=== PATIENT | female | born 1965 | race Caucasian/White ===

== ENCOUNTER 2022-12-24 12:08 | Inpatient (IN) | payer BC ==
[~2022-12-24] VITALS: Ht 157.5 cm; Wt 79.8 kg
[2022-12-24 12:13] VITALS: BP_SYST 147
[2022-12-24] MEDS ORDERED: LIDOCAINE PATCH 5% 1 EA TP ONE (12:45)
[2022-12-24] MEDS ORDERED: methocarbamoL 500 MG TABLET PO ONE (12:45)
[2022-12-24] MEDS ORDERED: KETOROLAC TROMETHAMINE 15 MG VIAL IM ONE (12:45)
[2022-12-24] MEDS ORDERED: MORPHINE 4 MG INJ. 4 MG/ML VIAL IM ONE (13:45)
[2022-12-24] MEDS ORDERED: MORPHINE 4 MG INJ. 4 MG/ML VIAL IVP ONE (14:15)
[2022-12-24] MEDS ORDERED: ONDANSETRON HCL 4 MG/2 ML VIAL IVP ONE (14:15)
[2022-12-24 15:59] LABS: BASOPHILS % (AUTO) 0.2 % (0.0-2.0); EOSINOPHILS % (AUTO) 0.8 % (0.0-4.0); HEMATOCRIT 34.4 % (36-48); HEMOGLOBIN 11.9 g/dL (12.0-16.0); LYMPHOCYTES # (AUTO) 0.5 K/uL (1.0-5.5); MEAN CORPUSCULAR HEMOGLOBIN 35 pg (27-31); MEAN CORPUSCULAR HGB CONC 35 % (32-36); MEAN CORPUSCULAR VOLUME 101 fL (79.0-98.0); MONOCYTES # (AUTO) 0.4 K/uL (0.0-1.0); MONOCYTES % (AUTO) 7.6 % (1.7-9.3); NEUTROPHILS # (AUTO) 4.8 K/uL (1.8-7.7); NEUTROPHILS % (AUTO) 83.4 % (40.0-70.0); PLATELET COUNT (AUTO) 207 K/uL (130-430); RED BLOOD CELL COUNT(AUTO) 3.42 MIL/uL (4.2-6.2); RED CELL DISTRIBUTION WIDTH 13.7 % (9.0-15.0); WHITE BLOOD COUNT (AUTO) 5.7 K/uL (4.8-10.8)
[2022-12-24 16:09] LABS: ALBUMIN 2.8 g/dL (3.4-4.8); CALCIUM 8.7 mg/dL (8.4-11.0); CREATININE 0.73 mg/dL (0.55-1.30); TOTAL BILIRUBIN 1.2 mg/dL (0.0-1.0)
[2022-12-24] MEDS ORDERED: POTASSIUM CHLORIDE 20 MEQ/PKT PACKET PO ONE (17:15)
[2022-12-24] MEDS ORDERED: LACO100T2 PO (20:47)
[2022-12-24] MEDS ORDERED: PRO20 PO (20:49)
[2022-12-24 21:16] VITALS: BP_SYST 130
[2022-12-24] MEDS ORDERED: FLU VACC QS2022-23(6MOS UP)/PF 0.5 ML/SYR SYRINGE I.M. PRN (21:30)
[2022-12-24] MEDS ORDERED: ACETAMINOPHEN 650 MG/20.3 ML UDC PO PRN (22:15)
[2022-12-24] MEDS ORDERED: HYDROcodone/ACETAMIN 5-325 MG TAB (NORCO/ VICODIN) PO PRN (22:15)
[2022-12-24] MEDS ORDERED: NALOXONE HCL 0.4 MG/ML AMP (NARCAN) IVP PRN ×2 (22:15)
[2022-12-24] MEDS: HYDROcodone/ACETAMIN 10-325 MG TAB PO PRN (22:38)
[2022-12-25 00:05] VITALS: BP_SYST 135
[2022-12-25] MEDS: HYDROcodone/ACETAMIN 10-325 MG TAB PO PRN ×2 (02:44→09:16)
[2022-12-25 08:00] VITALS: BP_SYST 137
[2022-12-25] MEDS ORDERED: LORazepam 2 MG/ML VIAL IVP PRN (11:45)
[2022-12-25] MEDS ORDERED: NALOXONE HCL 0.4 MG/ML AMP (NARCAN) IVP PRN ×2 (11:45)
[2022-12-25] MEDS ORDERED: KETOROLAC TROMETHAMINE 30 MG VIAL IVP PRN (11:45)
[2022-12-25] MEDS ORDERED: ONDANSETRON HCL 4 MG/2 ML VIAL IVP PRN (11:45)
[2022-12-25] MEDS ORDERED: ACETAMINOPHEN/CODEINE 300 MG-30 MG TABLET PO PRN (11:45)
[2022-12-25 11:47] VITALS: BP_SYST 122
[2022-12-25] MEDS: OXYCODONE/ACETAMINOPHEN 5-325 TABLET PO PRN ×2 (13:35→20:33)
[2022-12-25] MEDS: NORMAL SALINE 5 ML DISP.SYRIN IVF SCH ×2 (13:39→21:52)
[2022-12-25] MEDS: HYDROcodone/ACETAMIN 5-325 MG TAB (NORCO/ VICODIN) PO PRN (17:44)
[2022-12-25 18:24] VITALS: BP_SYST 108
[2022-12-25 20:00] VITALS: BP_SYST 119
[2022-12-25] MEDS: DOCUSATE SODIUM 100 MG CAPSULE PO SCH (20:32)
[2022-12-25] MEDS: MULTIVITAMINS TAB 1 TABLET PO SCH (20:33)
[2022-12-25] MEDS: CALCIUM 500 MG/TAB PO SCH (20:33)
[2022-12-25] MEDS: CYANOCOBALAMIN (VITAMIN B-12) 1,000 MCG TABLET PO SCH (20:33)
[2022-12-25] MEDS: LACOSAMIDE 100 MG TABLET PO SCH (20:38)
[2022-12-26 00:14] VITALS: BP_SYST 122
[2022-12-26] MEDS: HYDROcodone/ACETAMIN 5-325 MG TAB (NORCO/ VICODIN) PO PRN ×2 (02:27→13:12)
[2022-12-26] MEDS: NORMAL SALINE 5 ML DISP.SYRIN IVF SCH ×3 (06:04→21:01)
[2022-12-26 06:44] LABS: BASOPHILS % (AUTO) 0.4 % (0.0-2.0); EOSINOPHILS # (AUTO) 0.2 K/uL (0.0-0.4); EOSINOPHILS % (AUTO) 3.5 % (0.0-4.0); HEMATOCRIT 37.3 % (36-48); HEMOGLOBIN 12.7 g/dL (12.0-16.0); LYMPHOCYTES % (AUTO) 19.8 % (20.5-51.5); MEAN CORPUSCULAR HEMOGLOBIN 35 pg (27-31); MEAN CORPUSCULAR HGB CONC 34 % (32-36); MEAN CORPUSCULAR VOLUME 101 fL (79.0-98.0); MONOCYTES # (AUTO) 0.6 K/uL (0.0-1.0); MONOCYTES % (AUTO) 11.1 % (1.7-9.3); NEUTROPHILS # (AUTO) 3.4 K/uL (1.8-7.7); NEUTROPHILS % (AUTO) 65.2 % (40.0-70.0); PLATELET COUNT (AUTO) 251 K/uL (130-430); RED BLOOD CELL COUNT(AUTO) 3.69 MIL/uL (4.2-6.2); RED CELL DISTRIBUTION WIDTH 13.4 % (9.0-15.0); WHITE BLOOD COUNT (AUTO) 5.2 K/uL (4.8-10.8)
[2022-12-26 07:20] LABS: ALBUMIN 2.6 g/dL (3.4-4.8); CALCIUM 9.2 mg/dL (8.4-11.0); CREATININE 0.68 mg/dL (0.55-1.30); TOTAL BILIRUBIN 0.6 mg/dL (0.0-1.0)
[2022-12-26 08:00] VITALS: BP_SYST 120
[2022-12-26] MEDS: OXYCODONE/ACETAMINOPHEN 5-325 TABLET PO PRN ×3 (08:44→22:49)
[2022-12-26] MEDS: MULTIVITAMINS TAB 1 TABLET PO SCH (09:00)
[2022-12-26] MEDS: CALCIUM 500 MG/TAB PO SCH (09:00)
[2022-12-26] MEDS: CYANOCOBALAMIN (VITAMIN B-12) 1,000 MCG TABLET PO SCH (09:00)
[2022-12-26] MEDS: LACOSAMIDE 100 MG TABLET PO SCH ×2 (09:00→20:48)
[2022-12-26 11:27] VITALS: BP_SYST 114
[2022-12-26] MEDS ORDERED: CHOLECALCIFEROL (VITAMIN D3) 5,000 UNIT TABLET PO ONE (13:30)
[2022-12-26] MEDS: FLUoxetine HCL 20 MG CAPSULE (PROzac) PO SCH (15:47)
[2022-12-26 17:18] VITALS: BP_SYST 128
[2022-12-26 20:00] VITALS: BP_SYST 138
[2022-12-26] MEDS: DOCUSATE SODIUM 100 MG CAPSULE PO SCH (20:50)
[2022-12-26] MEDS: HEPARIN SODIUM,PORCINE 5,000 UNITS/ML VIAL SUBCUT SCH (20:50)
[2022-12-27] VITALS: BP_SYST 119
[2022-12-27] MEDS: NORMAL SALINE 5 ML DISP.SYRIN IVF SCH ×4 (05:03→22:24)
[2022-12-27 06:31] LABS: BASOPHILS % (AUTO) 0.4 % (0.0-2.0); EOSINOPHILS # (AUTO) 0.1 K/uL (0.0-0.4); EOSINOPHILS % (AUTO) 2.8 % (0.0-4.0); HEMOGLOBIN 12.1 g/dL (12.0-16.0); LYMPHOCYTES # (AUTO) 1.4 K/uL (1.0-5.5); LYMPHOCYTES % (AUTO) 32.8 % (20.5-51.5); MEAN CORPUSCULAR HEMOGLOBIN 35 pg (27-31); MEAN CORPUSCULAR HGB CONC 35 % (32-36); MEAN CORPUSCULAR VOLUME 101 fL (79.0-98.0); MONOCYTES # (AUTO) 0.7 K/uL (0.0-1.0); NEUTROPHILS # (AUTO) 2.1 K/uL (1.8-7.7); PLATELET COUNT (AUTO) 271 K/uL (130-430); RED BLOOD CELL COUNT(AUTO) 3.45 MIL/uL (4.2-6.2); RED CELL DISTRIBUTION WIDTH 13.6 % (9.0-15.0); WHITE BLOOD COUNT (AUTO) 4.4 K/uL (4.8-10.8)
[2022-12-27 06:53] LABS: CALCIUM 8.8 mg/dL (8.4-11.0); CREATININE 0.67 mg/dL (0.55-1.30)
[2022-12-27 07:58] LABS: ALBUMIN 2.5 g/dL (3.4-4.8); BILIRUBIN,DIRECT 0.2 mg/dL (0.0-0.3); TOTAL BILIRUBIN 0.5 mg/dL (0.0-1.0)
[2022-12-27 08:00] VITALS: BP_SYST 145
[2022-12-27] MEDS: OXYCODONE/ACETAMINOPHEN 5-325 TABLET PO PRN ×3 (08:06→22:13)
[2022-12-27] MEDS: KCL 20 mEq in 100 mL (PREMIX) 100 ML IV SCH ×2 (08:33→10:56)
[2022-12-27] MEDS: MULTIVITAMINS TAB 1 TABLET PO SCH (09:58)
[2022-12-27] MEDS: LACOSAMIDE 100 MG TABLET PO SCH ×2 (09:58→22:12)
[2022-12-27] MEDS: CALCIUM 500 MG/TAB PO SCH (09:58)
[2022-12-27] MEDS: CYANOCOBALAMIN (VITAMIN B-12) 1,000 MCG TABLET PO SCH (09:58)
[2022-12-27] MEDS: CHOLECALCIFEROL (VITAMIN D3) 5,000 UNIT TABLET PO SCH (09:58)
[2022-12-27] MEDS: HEPARIN SODIUM,PORCINE 5,000 UNITS/ML VIAL SUBCUT SCH ×2 (10:01→22:15)
[2022-12-27] MEDS: FLUoxetine HCL 20 MG CAPSULE (PROzac) PO SCH (10:05)
[2022-12-27 11:29] VITALS: BP_SYST 127
[2022-12-27] MEDS ORDERED: KCL 20 mEq in 100 mL (PREMIX) 100 ML IV ONE (11:30)
[2022-12-27 14:33] VITALS: BP_SYST 139
[2022-12-27] MEDS: HYDROcodone/ACETAMIN 5-325 MG TAB (NORCO/ VICODIN) PO PRN (18:12)
[2022-12-27 20:00] VITALS: BP_SYST 128
[2022-12-27] MEDS: DOCUSATE SODIUM 100 MG CAPSULE PO SCH (21:00)
[2022-12-28 00:29] VITALS: BP_SYST 117
[2022-12-28] MEDS: OXYCODONE/ACETAMINOPHEN 5-325 TABLET PO PRN ×3 (05:30→20:19)
[2022-12-28 07:11] LABS: BASOPHILS % (AUTO) 0.7 % (0.0-2.0); EOSINOPHILS # (AUTO) 0.1 K/uL (0.0-0.4); HEMATOCRIT 35.6 % (36-48); HEMOGLOBIN 12.2 g/dL (12.0-16.0); LYMPHOCYTES # (AUTO) 1.1 K/uL (1.0-5.5); LYMPHOCYTES % (AUTO) 23.2 % (20.5-51.5); MEAN CORPUSCULAR HEMOGLOBIN 35 pg (27-31); MEAN CORPUSCULAR HGB CONC 34 % (32-36); MEAN CORPUSCULAR VOLUME 101 fL (79.0-98.0); MONOCYTES # (AUTO) 0.6 K/uL (0.0-1.0); MONOCYTES % (AUTO) 12.7 % (1.7-9.3); NEUTROPHILS # (AUTO) 2.8 K/uL (1.8-7.7); NEUTROPHILS % (AUTO) 60.4 % (40.0-70.0); PLATELET COUNT (AUTO) 312 K/uL (130-430); RED BLOOD CELL COUNT(AUTO) 3.51 MIL/uL (4.2-6.2); RED CELL DISTRIBUTION WIDTH 13.7 % (9.0-15.0); WHITE BLOOD COUNT (AUTO) 4.6 K/uL (4.8-10.8)
[2022-12-28 07:43] LABS: CREATININE 0.64 mg/dL (0.55-1.30)
[2022-12-28 08:00] VITALS: BP_SYST 123
[2022-12-28 08:06] LABS: ALPHA-1-ANTITRYPSIN, S 212 mg/dL (101-187); FERRITIN 158 ng/mL (15-150); IMMUNOGLOBULIN G, SERUM 909 mg/dL (586-1602)
[2022-12-28] MEDS: FLUoxetine HCL 20 MG CAPSULE (PROzac) PO SCH (09:33)
[2022-12-28] MEDS: HYDROcodone/ACETAMIN 5-325 MG TAB (NORCO/ VICODIN) PO PRN (09:34)
[2022-12-28] MEDS: CHOLECALCIFEROL (VITAMIN D3) 5,000 UNIT TABLET PO SCH (09:35)
[2022-12-28] MEDS: CALCIUM 500 MG/TAB PO SCH (09:35)
[2022-12-28] MEDS: CYANOCOBALAMIN (VITAMIN B-12) 1,000 MCG TABLET PO SCH (09:36)
[2022-12-28] MEDS: MULTIVITAMINS TAB 1 TABLET PO SCH (09:36)
[2022-12-28] MEDS: HEPARIN SODIUM,PORCINE 5,000 UNITS/ML VIAL SUBCUT SCH ×2 (09:38→21:36)
[2022-12-28] MEDS: LACOSAMIDE 100 MG TABLET PO SCH ×2 (10:30→21:28)
[2022-12-28] MEDS ORDERED: CHOL500013 PO (10:59)
[2022-12-28] MEDS ORDERED: ACET1TAB93 PO (10:59)
[2022-12-28] MEDS ORDERED: OXYC-128 PO (10:59)
[2022-12-28] MEDS ORDERED: HYDR-3919 PO (10:59)
[2022-12-28] MEDS ORDERED: CYAN-45 PO (10:59)
[2022-12-28] MEDS ORDERED: DOCU-144 PO (10:59)
[2022-12-28] MEDS ORDERED: OSC500 PO (10:59)
[2022-12-28] MEDS ORDERED: MULT400T13 PO (10:59)
[2022-12-28 11:33] VITALS: BP_SYST 123
[2022-12-28 13:06] LABS: HEPATITIS A AB, IgM Negative (Negative); HEPATITIS B CORE AB, IgM Negative (Negative); HEPATITIS B SURFACE AG Negative (Negative)
[2022-12-28] MEDS: NORMAL SALINE 5 ML DISP.SYRIN IVF SCH ×2 (14:00→22:00)
[2022-12-28 15:43] VITALS: BP_SYST 137
[2022-12-28 16:06] LABS: ANTI NUCLEAR AB WITH REFLEX Negative (Negative)
[2022-12-28 20:05] VITALS: BP_SYST 138
[2022-12-28] MEDS: DOCUSATE SODIUM 100 MG CAPSULE PO SCH (21:29)
[2022-12-29] VITALS: BP_SYST 139
[2022-12-29 05:56] LABS: BASOPHILS % (AUTO) 0.6 % (0.0-2.0); EOSINOPHILS # (AUTO) 0.1 K/uL (0.0-0.4); EOSINOPHILS % (AUTO) 3.7 % (0.0-4.0); HEMATOCRIT 37.1 % (36-48); HEMOGLOBIN 12.8 g/dL (12.0-16.0); LYMPHOCYTES # (AUTO) 1.2 K/uL (1.0-5.5); LYMPHOCYTES % (AUTO) 31.1 % (20.5-51.5); MEAN CORPUSCULAR HEMOGLOBIN 35 pg (27-31); MEAN CORPUSCULAR HGB CONC 35 % (32-36); MEAN CORPUSCULAR VOLUME 101 fL (79.0-98.0); MONOCYTES # (AUTO) 0.5 K/uL (0.0-1.0); MONOCYTES % (AUTO) 14.1 % (1.7-9.3); NEUTROPHILS % (AUTO) 50.5 % (40.0-70.0); PLATELET COUNT (AUTO) 333 K/uL (130-430); RED BLOOD CELL COUNT(AUTO) 3.66 MIL/uL (4.2-6.2); RED CELL DISTRIBUTION WIDTH 13.6 % (9.0-15.0); WHITE BLOOD COUNT (AUTO) 3.9 K/uL (4.8-10.8)
[2022-12-29] MEDS: NORMAL SALINE 5 ML DISP.SYRIN IVF SCH ×2 (06:00→13:51)
[2022-12-29 06:21] LABS: CREATININE 0.57 mg/dL (0.55-1.30)
[2022-12-29] MEDS: OXYCODONE/ACETAMINOPHEN 5-325 TABLET PO PRN ×2 (06:39→14:32)
[2022-12-29 07:48] VITALS: BP_SYST 121
[2022-12-29] MEDS ORDERED: POTASSIUM CHLORIDE 20 MEQ TAB.PRT.SR PO ONE (08:30)
[2022-12-29] MEDS: MULTIVITAMINS TAB 1 TABLET PO SCH (08:56)
[2022-12-29] MEDS: CYANOCOBALAMIN (VITAMIN B-12) 1,000 MCG TABLET PO SCH (08:56)
[2022-12-29] MEDS: LACOSAMIDE 100 MG TABLET PO SCH (08:56)
[2022-12-29] MEDS: CHOLECALCIFEROL (VITAMIN D3) 5,000 UNIT TABLET PO SCH (08:56)
[2022-12-29] MEDS: CALCIUM 500 MG/TAB PO SCH (08:56)
[2022-12-29] MEDS: FLUoxetine HCL 20 MG CAPSULE (PROzac) PO SCH (09:01)
[2022-12-29] MEDS: HEPARIN SODIUM,PORCINE 5,000 UNITS/ML VIAL SUBCUT SCH (09:09)
[2022-12-29 11:51] VITALS: BP_SYST 116
[2022-12-29 11:56] LABS: HEPATITIS C VIRUS AB Negative <0.8 s/co (0.0-0.7)
[2022-12-29] MEDS: HYDROcodone/ACETAMIN 5-325 MG TAB (NORCO/ VICODIN) PO PRN ×3 (12:00→17:37)
[2022-12-29 14:39] VITALS: BP_SYST 130
[2022-12-29 14:59] VITALS: BP_SYST 130
[2022-12-29 16:15] VITALS: BP_SYST 143
[2022-12-30 14:06] LABS: LIVER-KIDNEY MICROSOMAL AB 0.8 Units (0.0-20.0)
[2023-01-01 11:06] LABS: ANTI-SMOOTH MUSCLE AB 7 Units (0-19)
== END 2022-12-29 17:55 | DRG 551 ==
LOC: SED 12:08 → SMU 16:34 → MERGE 16:34 → SMU 21:01
PROVIDERS: ADMIT Specialist; ATTEND Specialist
DX: S32.19XA Other fracture of sacrum, initial encounter for closed fracture (principal); E43 Unspecified severe protein-calorie malnutrition; S32.512A Fracture of superior rim of left pubis, initial encounter for closed fracture; E87.6 Hypokalemia; M48.061 Spinal stenosis, lumbar region without neurogenic claudication; E88.09 Other disorders of plasma-protein metabolism, not elsewhere classified; R74.01 Elevation of levels of liver transaminase levels; D72.819 Decreased white blood cell count, unspecified; Z20.822 Contact with and (suspected) exposure to COVID-19; K75.81 Nonalcoholic steatohepatitis (NASH); M54.16 Radiculopathy, lumbar region; R53.81 Other malaise; D64.9 Anemia, unspecified; E87.5 Hyperkalemia; K76.89 Other specified diseases of liver; W18.39XA Other fall on same level, initial encounter; Y93.89 Activity, other specified; Z79.899 Other long term (current) drug therapy; Y92.89 Other specified places as the place of occurrence of the external cause; Y99.8 Other external cause status; Z98.84 Bariatric surgery status
CPT/HCPCS: 36415; 71250-TC; 72131; 72148; 72195; 76376; 76700-TC; 80048; 80053; 80074; 80076; 82103; 82390; 82550; 82728; 82784; 82977; 83516; 85025; 86038; 86376; 86803; 96372; 96374; 96376; 97110-GP; 97530-GP; 99285; J1644; J1885; J2270; J2405; J3480